=== PATIENT | male | born 1990 | race African-American/Black ===

== ENCOUNTER 2016-10-26 15:54 | Emergency (ER) | payer BC, OTHER ==
[~2016-10-26] VITALS: Ht 180.3 cm; Wt 74.8 kg
[2016-10-26 17:00] LABS: Basophils # (auto) 0 uL; Basophils % (auto) 0.5 % (0.0-2.0); Eosinophils # (auto) 0.1 uL; Eosinophils % (auto) 2.1 % (0.0-7.0); Hematocrit 43.5 % (41.0-53.0); Hemoglobin 14.6 g/dL (13.5-17.5); Lymphocytes # (auto) 2.5 uL; Lymphocytes % (auto) 35.1 % (10.0-50.0); Mean Corpuscular Hemoglobin 29.6 pg (28.0-32.0); Mean Corpuscular Hgb Conc. 33.5 g/dL (32.0-36.0); Mean Corpuscular Volume 88.5 fL (80.0-100.0); Mean Platelet Volume 7.9 fL (7.4-10.4); Monocytes # (auto) 0.6 uL; Neutrophils # (auto) 3.8 uL; Neutrophils % (auto) 54.3 % (37.0-80.0); Platelet Count (auto) 298 10^3/uL (140-450); Red Cell Distribution Width 13.4 % (11.6-16.0); White Blood Cell 7.1 10^3/uL (4.4-10.8)
[2016-10-26 17:14] LABS: Urine Squamous Epithelial Cell None Seen /hpf (<5)
[2016-10-26 17:23] LABS: Albumin 4.4 g/dL (3.4-5.0); BUN/Creatinine Ratio 10.5; Bilirubin, Total 0.5 mg/dL (0.2-1.0); Calcium 8.9 mg/dL (8.5-10.1); Potassium 3.9 mmol/L (3.5-5.1); Total Protein 7.8 g/dL (6.4-8.2)
[2016-10-26 17:49] LABS: Urine Bilirubin Negative (Negative); Urine Blood Negative /uL (Negative); Urine Color Yellow (Yellow); Urine Glucose Normal (Normal); Urine Ketone Negative (Negative); Urine Nitrite Negative (Negative); Urine Urobilinogen Normal (Negative)
[2016-10-26 17:50] LABS: Urine Mucus FEW (None Seen); Urine RBC <1 /hpf (0 - 3)
[2016-10-26 18:34] VITALS: BP 138/87
[2016-10-26] MEDS ORDERED: LACTULOSE 20Gm/30ML SOLN PO ONE (20:00)
== END 2016-10-26 20:21 | disposition home or self-care (01) ==
LOC: ER 16:06
DX: K59.00 Constipation, unspecified (principal)
CPT/HCPCS: 36415; 74176; 80053; 81001; 85025